=== PATIENT | female | born 1995 | race Two or more races ===

== ENCOUNTER 2018-06-23 01:39 | Emergency (ER) | payer SELFPAY ==
[~2018-06-23] VITALS: Ht 175.3 cm; Wt 86.2 kg
[2018-06-23 01:49] VITALS: BP 124/64
[2018-06-23] MEDS ORDERED: ACETAMINOPHEN 325 MG TAB PO ONE (04:30)
[2018-06-23 04:35] LABS: Urine Pregnacy Test Negative (Negative)
[2018-06-23 04:37] LABS: Urine Bacteria MANY /hpf (None Seen); Urine Blood TRACE /uL (Negative); Urine Specific Gravity 1.004 (1.001-1.035); Urine WBC 5 /hpf (0 - 5)
[2018-06-23 04:41] LABS: Amphetamine Screen, Urine NEGATIVE (NEGATIVE); Barbiturate Scree,Urine NEGATIVE (NEGATIVE); Benzodiazephine Screen, Urine NEGATIVE (NEGATIVE); Cannabinoid Screen, Urine POSITIVE (NEGATIVE); Cocaine Screen, Urine NEGATIVE (NEGATIVE); Phencyclidine Screen, Urine NEGATIVE (NEGATIVE)
[2018-06-23 04:47] LABS: Opiate Scree,Urine NEGATIVE (NEGATIVE)
== END 2018-06-23 05:30 | disposition home or self-care (01) ==
LOC: EDBD 01:39 → ER 01:42
DX: M54.2 Cervicalgia (principal); R51 Headache; F10.920 Alcohol use, unspecified with intoxication, uncomplicated; Y90.0 Blood alcohol level of less than 20 mg/100 ml; V43.52XA Car driver injured in collision with other type car in traffic accident, initial encounter; Y93.89 Activity, other specified; Y99.8 Other external cause status; Y92.410 Unspecified street and highway as the place of occurrence of the external cause
CPT/HCPCS: 36415; 70450; 72125; 80307; 80320; 81001; 81025